=== PATIENT | female | born 1960 | race Native Hawaiian/Other Pacific Islander ===

== ENCOUNTER 2016-12-09 07:43 | Outpatient (CLI) | payer BC ==
[~2016-12-09] VITALS: Ht 162.6 cm; Wt 135.2 kg
[~2016-12-09 07:43] MED LIST: ASPIR-8181 MG PO; CETIRIZINE10 MG PO; FURO40TA93 PO; HYDROCHLOROT12.5 M1 PO; KLOR-CON M2020 MEQ OR; LEVO0.0723 PO; LOSA50TA PO; METF100038 OR; MOBIC7.5 M1 PO; MONTELUKAST SOD10 MG PO; OMEP40CA PO; SM IRON325 MG OR; ZANTAC 75 PO
== END 2016-12-09 08:43 | disposition home or self-care (01) ==
LOC: NM 07:43
DX: R06.09 Other forms of dyspnea (principal); R07.89 Other chest pain; R06.02 Shortness of breath
CPT/HCPCS: 93306; A9500; J2785

== ENCOUNTER 2021-07-11 13:59 | Emergency (ER) | payer OTHER ==
[~2021-07-11] VITALS: Ht 162.6 cm; Wt 123.4 kg
[2021-07-11 14:04] VITALS: BP 131/55; TEMP 97.2
[2021-07-11 14:44] LABS: PLATELET COUNT 65 K/uL (152-353); POTASSIUM 3.6 mmol/L (3.6-5.2)
== END 2021-07-11 15:31 | disposition home or self-care (01) ==
LOC: ED 13:59
PROVIDERS: Emergency Medicine
DX: R60.0 Localized edema (principal); D64.89 Other specified anemias; J02.8 Acute pharyngitis due to other specified organisms
CPT/HCPCS: 80053; 83880; 84484; 85007; 85027; 85379; 93005; 96374; 96376; 99284; J1940

== ENCOUNTER 2022-01-19 17:03 | Outpatient (CLI) | payer OTHER | END 2022-01-19 19:51 | disposition home or self-care (01) | LOC: RAD 17:03 | PROVIDERS: ATTEND Nurse Practitioner Family | DX: M54.50 Low back pain, unspecified (principal) ==

== ENCOUNTER 2022-03-25 17:08 | Emergency (ER) | payer OTHER ==
[~2022-03-25] VITALS: Ht 162.6 cm; Wt 123.4 kg
[2022-03-25 17:10] VITALS: TEMP 98
[2022-03-25 17:37] LABS: PLATELET COUNT 58 K/uL (152-353)
[2022-03-25 17:50] LABS: POTASSIUM 3.8 mmol/L (3.6-5.2)
[2022-03-25 17:52] LABS: PARTIAL THROMBOPLASTIN TIME 23.7 SECONDS (24.5-33.6)
[2022-03-25 18:25] VITALS: BP 133/66
== END 2022-03-25 18:26 | disposition home or self-care (01) ==
LOC: ED 17:08
PROVIDERS: Emergency Medicine
DX: R00.2 Palpitations (principal)
CPT/HCPCS: 80053; 83880; 84443; 84484; 85027; 85379; 85610; 85730; 93005; 99283

== ENCOUNTER 2022-08-19 17:58 | Emergency (ER) | payer OTHER ==
[~2022-08-19] VITALS: Ht 162.6 cm; Wt 127.5 kg
[2022-08-19 18:07] VITALS: TEMP 98.7
[2022-08-19 18:40] LABS: PLATELET COUNT 83 K/uL (152-353)
[2022-08-19 18:42] LABS: POTASSIUM 3.3 mmol/L (3.6-5.2)
[2022-08-19 21:32] VITALS: BP 112/72
== END 2022-08-19 21:32 | disposition home or self-care (01) ==
LOC: ED 17:58
PROVIDERS: Emergency Medicine
DX: R60.0 Localized edema (principal); I48.92 Unspecified atrial flutter; D64.89 Other specified anemias; Z98.890 Other specified postprocedural states; E87.6 Hypokalemia; E83.51 Hypocalcemia
CPT/HCPCS: 36415; 80048; 81002; 83880; 85027; 96374; 96376; 99283; 99284; J1940

== ENCOUNTER 2023-01-21 16:51 | Emergency (ER) | payer OTHER ==
[~2023-01-21] VITALS: Ht 162.6 cm; Wt 124.3 kg
[2023-01-21 17:01] VITALS: BP 153/57; TEMP 96.8
[2023-01-21 17:49] LABS: PLATELET COUNT 54 K/uL (152-353)
[2023-01-21 17:58] LABS: POTASSIUM 3.7 mmol/L (3.6-5.2); SODIUM 137 mmol/L (136-145)
== END 2023-01-21 20:48 | disposition home or self-care (01) ==
LOC: ED 16:51
PROVIDERS: Emergency Medicine
DX: K29.80 Duodenitis without bleeding (principal)
CPT/HCPCS: 80053; 85027; 99284; Q9963